=== PATIENT | male | born 1965 | race Caucasian/White ===

== ENCOUNTER 2023-01-03 19:18 | Emergency (ER) | payer SELFPAY ==
[~2023-01-03] VITALS: Ht 190.5 cm; Wt 140.0 kg
[2023-01-03 19:27] VITALS: BP 164/99
[2023-01-03] MEDS ORDERED: PROVENTIL HFA IN (19:43)
[2023-01-03] MEDS ORDERED: IPRATROPIU0.5 MG/3 M IN (19:44)
[2023-01-03] MEDS ORDERED: TRELEGY ELLIPTA1 AER (19:45)
[2023-01-03] MEDS ORDERED: MUCINEX1200 MG PO (19:45)
[2023-01-03] MEDS ORDERED: ASPIRIN81 MG PO (19:46)
[2023-01-03 20:08] LABS: BASO% 0.2 % (0-3); HEMATOCRIT 47.7 % (39.0-50.0); HEMOGLOBIN 16.6 g/dl (14.0-18.0); IMMATURE GRANULOCYTES 0.2 % (0.0-5.0); LYMPH% 6.4 % (15-41); MEAN CORPUSCULAR HGB 30.6 pG CALC (26.0-32.0); MEAN CORPUSCULAR HGB CONC 34.8 g/dL CAL (32.0-36.0); MONO% 2.6 % (2-13); NEUT# 7.68 thou/uL (1.82-7.42); NEUT% 90.6 % (42-76); RED BLOOD COUNT 5.42 mill/uL (4.70-6.10)
[2023-01-03 20:46] VITALS: BP 134/85
[2023-01-03 21:01] VITALS: BP 139/90
[2023-01-03 21:06] VITALS: BP 134/85
== END 2023-01-03 21:14 | disposition home or self-care (01) | DRG 203 ==
LOC: ED 19:18
PROVIDERS: Family Medicine
DX: J45.901 Unspecified asthma with (acute) exacerbation (principal); J06.9 Acute upper respiratory infection, unspecified; R05.9 Cough, unspecified

== ENCOUNTER 2023-01-07 03:40 | Emergency (ER) | payer SELFPAY ==
[~2023-01-07] VITALS: Ht 190.5 cm; Wt 140.0 kg
[~2023-01-07 03:40] MED LIST: ASPIRIN81 MG PO; IPRATROPIU0.5 MG/3 M IN; MUCINEX1200 MG PO; PROVENTIL HFA IN; TRELEGY ELLIPTA1 AER
[2023-01-07 05:37] LABS: BASO% 0.2 % (0-3); EOS% 0.3 % (0-8); HEMATOCRIT 43.1 % (39.0-50.0); IMMATURE GRANULOCYTES 0.5 % (0.0-5.0); LYMPH% 8.8 % (15-41); MEAN CELL VOLUME 88.3 fL CALC (80.0-100.0); MEAN CORPUSCULAR HGB 30.7 pG CALC (26.0-32.0); MEAN CORPUSCULAR HGB CONC 34.8 g/dL CAL (32.0-36.0); MONO% 5.8 % (2-13); NEUT# 8.45 thou/uL (1.82-7.42); NEUT% 84.4 % (42-76); RED BLOOD COUNT 4.88 mill/uL (4.70-6.10); RED CELL DISTRI WIDTH 12.2 % (11.5-15.5)
[2023-01-07 05:49] LABS: ALBUMIN 4.4 g/dL (3.2-5.0); ALKALINE PHOSPHATASE 65 u/l (38-126); ANION GAP 13 (6-22 (CALC)); BILIRUBIN, TOTAL 0.8 mg/dL (0.2-1.3); BUN 10 mg/dL (9-20); BUN/CREATININE RATIO 14 (12-20 (CALC)); CARBON DIOXIDE 25 mmol/l (22-30); CHLORIDE 106 mmol/l (95-108); CREATININE 0.8 mg/dL (0.7-1.3); GFR FOR AFR.AMER. > 60 ML/MIN (>=60 (CALC)); GFR OTHER RACES > 60 ML/MIN (>=60 (CALC)); POTASSIUM 3.5 mmol/l (3.5-5.1); SGOT/AST 34 u/l (17-59); SODIUM 141 mmol/l (137-146); TOTAL PROTEIN 7.1 g/dL (6.3-8.2)
[2023-01-07 05:52] LABS: INTERNATIONAL NORMALIZED RATIO 1.1 RATIO (0.7-1.3); PROTHROMBIN TIME 11.2 SECONDS (9.0-12.5)
[2023-01-07 05:55] LABS: D-DIMER 0.17 mg/L (0.19-0.60)
[2023-01-07] MEDS ORDERED: VIBRAMYCIN100 M2 PO (06:16)
[2023-01-07 06:31] VITALS: BP 143/86
[2023-01-07] MEDS ORDERED: BENZONATATE150 MG PO (07:30)
== END 2023-01-07 07:54 | disposition home or self-care (01) | DRG 203 ==
LOC: ED 03:40
PROVIDERS: Family Medicine
DX: J45.901 Unspecified asthma with (acute) exacerbation (principal)
CPT/HCPCS: J3475